=== PATIENT | male | born 1940 | race Caucasian/White ===

== ENCOUNTER → 2018-02-04 08:03 | Outpatient (REF) | payer MEDICARE, SELFPAY ==
[2018-02-04 12:43] LABS: ALT 20 U/L (12-78); AST 15 U/L (15-37); Albumin 3.7 g/dL (3.4-5.0); Alkaline Phosphatase 88 U/L (46-116); Anion Gap 9.9 mmol/L (3-11); BUN 26 mg/dL (7-18); Bilirubin, Total 0.4 mg/dL (0.2-1.0); CO2 25.1 mmol/L (21.0-32.0); CREATININE 1.39 mg/dL (0.70-1.30); Calcium 8.2 mg/dL (8.5-10.1); Chloride 107 mmol/L (98-107); Cholesterol 182 mg/dL (50-200); Estimated GFR 49.29 (mL/min/1.73m2); Glucose 96 mg/dL (70-100); HDL Cholesterol 47 mg/dL (40-60); LDL CHOLESTEROL 123 mg/dL (<100); Potassium 4.3 mmol/L (3.5-5.1); Sodium 142 mmol/L (136-145); Total Protein 6.9 g/dL (6.4-8.2); Triglyceride 76 mg/dL (30-150)
[2018-02-04 12:45] LABS: HCT 40.1 % (40.0-50.0); HGB 12.6 g/dL (13.5-17.5); Mean Corp. HGB Concentration 31.4 g/dL (32.0-36.0); Mean Corpuscular Hemoglobin 30.1 pg (27.0-33.0); Mean Corpuscular Volume 95.9 fL (80-95); Mean Platelet Volume 10.9 fL (8.0-11.0); Platelet Count 178 x1000/uL (130-400); RBC 4.18 m/cumm (4.50-6.00); RBC Distribution Width 13.6 % (11.8-14.1); White Blood Cell Count 5.99 k/cumm (4.4-10.8)
== END ==
LOC: NCHCN 08:03
PROVIDERS: Visit Provider Family Medicine
DX: I10 Essential (primary) hypertension (principal); E56.0 Deficiency of vitamin E; R80.9 Proteinuria, unspecified
CPT/HCPCS: 80053; 80061; 83721; 85027

== ENCOUNTER 2018-07-09 15:09 | Emergency (ER) | payer MEDICARE, SELFPAY ==
--- NOTE | 2018-07-09 15:10 | NUR.NOTE ---
Nursing Note: 1503: Patient arrived in the Emergency Department brought in by [facility] CPR had been in progress for about 30 min at this time. CPR started by MARIBEL MILAN. 1504: 1 amp of EPI given in IO site in the LLE by Eric MILAN. Site was flushed prior to administration. At the same time Provider was checking for cardiac activity with ultrasound CPR paused at this time. ET tube 23 at the LIP. Patient was intubated by calex prior to arrival in the ER. 1507: CPR paused to use ultrasound to check for cardiac activity with ultrasound. 1509: Time of called by Dr Uribe.
--- NOTE | 2018-07-09 15:14 | W.ED.GENAD ---
Discharge Plan Disposition Patient Disposition: Discharge Details Chief Complaint: CodeBlue Clinical Impression: Cardiopulmonary arrest Primary Care Provider: Kirsty Hillman ED Provider: Marshal Uribe Medical Decision Making 78-year-old male who was reported to have been found in a local [place] post office parking lot unresponsive and slumped over the wheel. EMS was called and found the patient to be pulseless and apneic. He was intubated, CPR was started, he was given epinephrine x3 and had one defibrillation for brief V. fib. He did not regain consciousness or regain peripheral pulses. He arrives moribund; intubated and unresponsive with a GCS of 3T. Bedside ultrasound performed with no evidence of cardiac activity. Patient underwent ongoing CPR, administration of a fourth round of epinephrine, without return of spontaneous circulation. CPR/downtime was approximately 40 minutes. I felt further resuscitative efforts were futile. Patient pronounced at 1509h. automobile insurance claim examiner contacted and patient not deemed a suspicious ; no indication for autopsy. automobile insurance claim examiner reports patient has extensive cardiovascular disease. This will be his cause of . Family offered and accepted pastoral services to bedside. HPI General Mode of arrival: EMS. Date/Time Provider Initiated Documentation: 07/09/18 15:12. Limitations to Documentation: other (cpr in progress). Information obtained by: EMS. History of Present Illness 78 year old M presents to the emergency department with the chief complaint of Unresponsive, CPR in progress, Patient did receive the following treatments prior to arrival, other (EPINEPHRINE X3, INTUBATED) General Stated Complaint: CodeBlue ANGELA: 1 Review of Systems Review of Systems Unobtainable due to mental status Exam Const General: patient mechanically ventilated Nutritional Appearance: average body habitus Limitations: other limitations (Intubated and unresponsive) Eyes Pupils: other (Pupils are fixed and dilated, no corneal reflex) Neck Neck: normal visual inspection and trachea midline Chest Chest: normal inspection of the chest, no crepitus and other (diminshed breath sounds with ventilation) Resp Effort & Inspection: other (Bilateral diminished breath sounds with ventilation, no spontaneous respira) Cardio Other: No heart sounds appreciated, no peripheral pulses GI Inspection: normal to inspection Palpation: soft Neuro General: other (Pupils fixed and dilated bilaterally, no corneal reflex, patient unresponsi) Pupils: Fixed/non-reactive: bilateral Extrem General: other (Cool, pale, no peripheral pulse) Other: IO in place L prox tibia
--- NOTE | 2018-07-09 15:21 | ED.GENADUL_ITS ---
Discharge Plan Disposition Patient Disposition: Discharge Details Chief Complaint: CodeBlue Clinical Impression: Cardiopulmonary arrest Primary Care Provider: Kirsty Hillman ED Provider: Marshal Uribe Medical Decision Making 78-year-old male who was reported to have been found in a local [place] parking lot unresponsive and slumped over the wheel. EMS was called and found the patient to be pulseless and apneic. He was intubated, CPR was started, he was given epinephrine x3 and had one defibrillation for brief V. fib. He did not regain consciousness or regain peripheral pulses. He arrives moribund; intubated and unresponsive with a GCS of 3T. Bedside ultrasound performed with no evidence of cardiac activity. Patient underwent ongoing CPR, administration of a fourth round of epinephrine, without return of spontaneous circulation. CPR/downtime was approximately 40 minutes. I felt further resuscitative efforts were futile. Patient pronounced at 1509h. hand cloth examiner contacted and patient not deemed a suspicious ; no indication for autopsy. hand cloth examiner reports patient has extensive cardiovascular disease. This will be his cause of . Family offered and accepted pastoral services to bedside. HPI General Mode of arrival: EMS . Date/Time Provider Initiated Documentation: 07/09/18 15:12 . Limitations to Documentation: other (cpr in progress) . Information obtained by: EMS . History of Present Illness 78 year old M presents to the emergency department with the chief complaint of Unresponsive, CPR in progress, Patient did receive the following treatments prior to arrival, other (EPINEPHRINE X3, INTUBATED) General Stated Complaint: CodeBlue ANGELA: 1 Review of Systems Review of Systems Unobtainable due to mental status Exam Const General: patient mechanically ventilated Nutritional Appearance: average body habitus Limitations: other limitations (Intubated and unresponsive) Eyes Pupils: other (Pupils are fixed and dilated, no corneal reflex) Neck Neck: normal visual inspection and trachea midline Chest Chest: normal inspection of the chest, no crepitus and other (diminshed breath sounds with ventilation) Resp Effort & Inspection: other (Bilateral diminished breath sounds with ventilation, no spontaneous respira) Cardio Other: No heart sounds appreciated, no peripheral pulses GI Inspection: normal to inspection Palpation: soft Neuro General: other (Pupils fixed and dilated bilaterally, no corneal reflex, patient unresponsi) Pupils: Fixed/non-reactive: bilateral Extrem General: other (Cool, pale, no peripheral pulse) Other: IO in place L prox tibia
--- NOTE | 2018-07-09 16:31 | PDOC.ERCMPRO ---
Care Management Progress Note 07/09-This was able to find Rachele and Dianne Yony. Dr. Uribe spoke with Rachele on the phone and both Rachele and Dianne came to the emergency department. Discussed with Dianne and Rachele home. Dianne has chosen [facility] in [facility]. There is a possibility that there is a life insurance but Dianne is unclear right now. Abelino did all his legal business with [employer] Mendes in [facility]. Also discussed with Dianne the possibility of Abelino being able to use state funds as he did receive some state services. Explained that Hayden would be able to assist with all that. Dianne and Julianna requested hydrotel operator. Abelino is jainism and Amanda called in the Radio Program Director for prayers with Abelino and the family. Gave Dianne the lechuga to Abelino's truck which is located at the [place] [employer]. Dianne did not want any clothing or his shoes to take home. Called [facility] and spoke with Jaky. Jaky will send Hayden up to fruit or nut picker Abelino. Julianna and Dianne and both are in agreement with plan. Dr. Uribe and Amanda RN aware of the above plan and are in agreement. Offered continual supportive services to the family.
--- NOTE | 2018-07-09 16:39 | CMPROGNOTE_ITS ---
Care Management Progress Note 07/09-This was able to find Rachele and Dianne Yony. Dr. Uribe spoke with Rachele on the phone and both Rachele and Dianne came to the emergency department. Discussed with Dianne and Rachele home. Dianne has chosen [facility] in [facility]. There is a possibility that there is a life insurance but Dianne is unclear right now. Abelino did all his legal business with [employer] Ryan Mendes in [facility]. Also discussed with Dianne the possibility of Abelino being able to use state funds as he did receive some state services. Explained that Hayden would be able to assist with all that. Dianne and Julianna requested management lead. Abelino is mu-ism and Amanda called in the Telephoner for prayers with Abelino and the family. Gave Dianne the lechuga to Abelino's truck which is located at the [place] [employer]. Dianne did not want any clothing or his shoes to take home. Called [facility] and spoke with Jaky. Jaky will send Hayden up to pickler helper Abelino. Julianna and Dianne and both are in agreement with plan. Dr. Uribe and Amanda RN aware of the above plan and are in agreement. Offered continual supportive services to the family.
== END 2018-07-09 15:12 | disposition expired ==
PROVIDERS: Emergency Provider Emergency Medicine
DX: I46.2 Cardiac arrest due to underlying cardiac condition (principal); R40.2432 Glasgow coma scale score 3-8, at arrival to emergency department; I25.10 Atherosclerotic heart disease of native coronary artery without angina pectoris
CPT/HCPCS: 92950; 99285